=== PATIENT | male | born 1980 | race African-American/Black ===

== ENCOUNTER 2017-09-15 19:01 | Emergency (ER) | payer OTHER ==
[~2017-09-15] VITALS: Ht 172.7 cm; Wt 112.9 kg
--- NOTE | 2017-09-15 19:35 | ED Integumentary General ---
General Stated Complaint: R SIDE BOIL INNER THIGH Source: patient Exam Limitations: no limitations History of Present Illness Date Seen by Provider: Sep 15, 2017 Time Seen by Provider: 19:27 Initial Comments The patient presents to the ER by private conveyance with a chief complaint about 1-2 days now he's noticed a boil growing up in his right inner thigh. He says he's gotten them never this bad before. Usually he will apply some aloe vera and they go away but this one is not. It is painful draining a small amount of purulent drainage. He's had no fevers chills nausea vomiting or diarrhea. He has a history of asthma and uses Advair. Allergies and Home Medications Allergies Coded Allergies: No Known Drug Allergies (Unverified , 09/15/17) Patient Home Medication List Home Medication List Reviewed: Yes Constitutional: No chills, No diaphoresis EENTM: No ear discharge, No ear pain Respiratory: No cough, No short of breath Cardiovascular: No chest pain, No palpitations Gastrointestinal: No abdominal pain, No constipation, No diarrhea Genitourinary: No discharge, No dysuria Musculoskeletal: No back pain, No gout, No joint pain, No muscle stiffness, No muscle cramps Skin: see HPI; No pruritus, No rash Psychiatric/Neurological: Denies Headache, Denies Numbness Past Mpnrehk-Neewyk-Ouaxwz Hx Patient Social History Alcohol Use: Denies Use Recreational Drug Use: No Smoking Status: Never a Smoker Recent Foreign Travel: No Contact w/Someone Who Travel: No Physical Exam Vital Signs Vital Signs - First Documented 09/15/17 19:27 Temp 98.7 Pulse 82 Resp 16 B/P (MAP) 125/95 (105) Pulse Ox 99 Capillary Refill : General Appearance: WD/WN, no apparent distress Cardiovascular: normal peripheral pulses, regular rate, rhythm Respiratory: no respiratory distress, no accessory muscle use Neurologic/Psychiatric: alert, oriented x 3 Skin: other (3 cm diameter area of induration with some erythema and a central pore with some mild scant discharge around the wound. There is no tenderness around the perineum. The wound is medial thigh about 4 inches inferior to the perineum) Procedures/Interventions I&D : Blade Size: 11 I & D Procedure: betadine prep (chlorhexidine soap water) Progress Infiltrate in the wound with 9 cc of lidocaine. Patient was having a lot of trouble tolerating the injection so we used a total of 2 mg Ativan and 50 Carter grams of fentanyl and this helped. We then were able to mirian the wound using an 11 blade and a cross vera fashion and got out about 5-10 cc of red tinged purulence. Unfortunately while trying to break up loculations with the cotton tipped applicator the patient was not able to tolerate any more so we cover the wound with a dressing and will have him follow up outpatient as necessary on antibiotics. Progress/Results/Core Measures Results/Orders My Orders Orders - UDAY WELSH Lidocaine 1% Inj 20 Ml (Xylocaine 1% Inj (09/15/17 20:00) Lorazepam Injection (Ativan Injection) (09/15/17 20:00) Fentanyl Injection (Sublimaze Injection (09/15/17 20:00) Let Solution (Let Solution) (09/15/17 20:10) Let Solution (Let Solution) (09/15/17 20:15) Lorazepam Injection (Ativan Injection) (09/15/17 20:45) Sulfamethoxazole/Trimet Ds Tab (Bactrim (09/15/17 22:15) Medications Given in ED Current Medications Medications Dose Ordered Sig/Margie Route Start Time Stop Time Status Last Admin Dose Admin Fentanyl Citrate 50 mcg ONCE ONCE IM 09/15/17 20:00 09/15/17 20:01 DC 09/15/17 20:05 50 MCG Lorazepam 1 mg ONCE ONCE IM 09/15/17 20:00 09/15/17 20:01 DC 09/15/17 20:04 1 MG Lorazepam 1 mg ONCE ONCE IM 09/15/17 20:45 09/15/17 20:46 DC 09/15/17 20:49 1 MG Tetracaine/ Epinephrine/ Lidocaine 1 ea ONCE ONCE TOP 09/15/17 20:15 09/15/17 20:16 DC 09/15/17 20:10 1 EA Vital Signs/I&O 09/15/17 19:27 Temp 98.7 Pulse 82 Resp 16 B/P (MAP) 125/95 (105) Pulse Ox 99 Progress Progress Note : Time: 21:30 Progress Note The patient had a difficult time tolerating initial injection of lidocaine so we gave him a milligram of Ativan and 50 of fentanyl. After 2030 minutes we tried again and he still having quite a bit of anxiety and pain so we gave another milligram of Ativan. At that point he was able to allow us to do his procedure. Departure Impression Primary Impression: Abscess Disposition: 01 HOME, SELF-CARE Condition: Stable Departure-Patient Inst. Decision time for Depature: 22:18 Referrals: GERALD RIVERA DO NO,LOCAL PHYSICIAN (PCP) Primary Care Physician Patient Instructions: Abscess Incision and Drainage (DC) Add. Discharge Instructions: Keep the wound open and you can use a light gauze dressing just to catch the drainage. Changes often as necessary or at least daily. Keep the wound clean with regular soap and water and dry the skin around it. Take the antibiotics 2 tablets twice a day with food for 7 days. If by Sunday or Sunday, 2-3 days from now you're still having a lot of pain and swelling in that area or if it's gotten worse call Dr. Rivera's office and request an appointment in the next 1- 2 days. If you started experience fevers chills nausea vomiting or other worrisome symptoms return to the ER. Scripts Sulfamethoxazole/Trimethoprim (Bactrim Ds Tablet) 1 Each Tablet 2 EACH PO BID for 7 Days, #26 TAB 0 Refills Prov: UDAY WELSH 09/15/17 Work/School Note: Work Release Form Date Seen in the Emergency Department: Sep 15, 2017 Return to Work: Sep 18, 2017 Restrictions: No Restrictions Copy Copies To 1: GERALD RIVERA TITUS J Sep 15, 2017 19:35
[2017-09-15] MEDS ORDERED: LIDOCAINE 1% INJ 20 ML 20 ML VIAL INJ ONE (20:00)
[2017-09-15] MEDS ORDERED: fentaNYL INJECTION 100 MCG/2 ML AMP IM ONE (20:00)
[2017-09-15] MEDS ORDERED: LORazepam INJ 2 MG/ML (ATIVAN) VIAL IM ONE ×2 (20:00→20:45)
[2017-09-15] MEDS ORDERED: L.E.T. SYRINGE 5 ML ONE (20:10)
[2017-09-15] MEDS ORDERED: L.E.T. SYRINGE 5 ML TOP ONE (20:15)
[2017-09-15] MEDS ORDERED: TRIM/SULFAMETH 160/800 (SEPTRA DS) TAB PO ONE (22:15)
[2017-09-15] MEDS ORDERED: SULF1TAB35 PO (22:20)
[2017-09-15 22:26] VITALS: BP 145/74
[2017-09-16] MEDS ORDERED: TRAM50TA2 PO ×2 (15:33)
[2017-09-16] MEDS ORDERED: SULF1TAB35 PO ×2 (15:33)
== END 2017-09-15 22:24 | disposition home or self-care (01) ==
LOC: ER 19:05
DX: L02.415 Cutaneous abscess of right lower limb (principal); J45.909 Unspecified asthma, uncomplicated
CPT/HCPCS: 10061; 96372

== ENCOUNTER 2017-09-16 13:09 | Day surgery (SDC) | payer OTHER ==
[~2017-09-16] VITALS: Ht 172.7 cm; Wt 109.8 kg
[~2017-09-16 13:09] MED LIST: SULF1TAB35 PO
[2017-09-16] MEDS ORDERED: ceFAZolin 2 GM IV Premixed 50 ML IV ONE (13:30)
[2017-09-16] MEDS ORDERED: LACTATED RINGERS 1,000 ML IV SCH (13:30)
--- NOTE | 2017-09-16 13:40 | History & Physical-Surgical ---
History of Present Illness History of Present Illness Reason for visit/HPI HPI per ED: The patient presents to the ER by private conveyance with a chief complaint about 1-2 days now he's noticed a boil growing up in his right inner thigh. He says he's gotten them never this bad before. Usually he will apply some aloe vera and they go away but this one is not. It is painful draining a small amount of purulent drainage. He's had no fevers chills nausea vomiting or diarrhea. He has a history of asthma and uses Advair. When I spoke to pt he staes this all started last sunday, got a little better by sunday and then started getting worse this sunday. He went in to the ER and they tried to do I&D, but he could not stand the pain. He went home, but it has since gotten bigger and thinks it is worse. Pt thinks pain is about the same; 6 out of 10 on a 1-10 scale. Sharp, stabbing pain...not radiating anywhere. Date of Admission 09/16/17 Time Seen by Provider: 13:12 I consulted on this patient on 09/16/17 13:34 Attending Physician Javy Rivera DO Admitting Physician No,Local Physician Consult Allergies and Home Medications Allergies Coded Allergies: No Known Drug Allergies (Unverified , 09/15/17) Home Medications Sulfamethoxazole/Trimethoprim 1 Each Tablet, 2 EACH PO BID Prescribed by: UDAY WELSH on 09/15/17 2220 Patient Home Medication List Home Medication List Reviewed: Yes Past Zcmfzxx-Oovvmk-Vhcidc Hx Patient Social History Alcohol Use: Denies Use Recreational Drug Use: No Smoking Status: Never a Smoker 2nd Hand Smoke Exposure: No Recent Foreign Travel: No Contact w/Someone Who Travel: No Recent Hopitalizations: No Seasonal Allergies Seasonal Allergies: No Surgeries History of Surgeries: Yes Surgeries: Orthopedic (ruptured achilles tendon) Respiratory History of Respiratory Disorde: Yes Respiratory Disorders: Asthma Cardiovascular History of Cardiac Disorders: No Neurological History of Neurological Disord: No Genitourinary History of Genitourinary Disor: No Gastrointestinal History of Gastrointestinal Di: No Musculoskeletal History of Musculoskeletal Dis: No Endocrine History of Endocrine Disorders: Yes Endocrine Disorders: Diabetes, Non-Insulin dep HEENT History of HEENT Disorders: No Cancer History of Cancer: No Psychosocial History of Psychiatric Problem: No Integumentary History of Skin or Integumenta: No Blood Transfusions History of Blood Disorders: No Family Medical History Significant Family History: Diabetes (grandmother), Hypertension (father) Constitutional: No chills, No diaphoresis, No dizziness, No weakness EENTM: No blurred vision, No double vision, No mouth pain, No throat pain, No throat swelling Respiratory: No cough, No dyspnea on exertion Cardiovascular: No chest pain, No edema, No palpitations Gastrointestinal: No abdominal pain, No constipation, No nausea Genitourinary: No dysuria, No frequency, No hematuria Musculoskeletal: No joint pain, No joint swelling, No muscle stiffness, No muscle cramps Skin: see HPI; No change in color, No change in hair/nails Psychiatric/Neurological: Denies Anxiety, Denies Depressed, Denies Paresthesia , Denies Seizure, Denies Tremors pt denies any abnormal bruising or bleeding, no heat or cold intolerance Physical Exam Vital Signs Capillary Refill : General Appearance: WD/WN, Mild Distress Eyes: Bilateral Eye PERRL, Bilateral Eye EOMI HEENT: PERRL/EOMI, Pharynx Normal; No Pale Conjunctivae (L), No Pale Conjunctivae (R) Neck: Full Range of Motion, Normal Inspection, Non Tender, Supple Respiratory: Chest Non Tender, Lungs Clear, Normal Breath Sounds, No Accessory Muscle Use, No Respiratory Distress Cardiovascular: Regular Rate, Rhythm, No Edema, No Murmur, Normal Peripheral Pulses Gastrointestinal: Normal Bowel Sounds, No Organomegaly, No Pulsatile Mass, Non Tender, Soft Back: No CVA Tenderness, No Vertebral Tenderness Extremity: Normal Capillary Refill, Normal Inspection, Normal Range of Motion, Non Tender, No Calf Tenderness, No Pedal Edema Neurologic/Psychiatric: Alert, Oriented x3, No Motor/Sensory Deficits, Normal Mood/Affect, assistant produce manager II-XII Norm as Tested Skin: Other (right posterior aspect of leg, appx 6-7 inches below gluteal fold , somewhat medial is an area of fluctuance, tender, and warmth) Lymphatic: No Adenopathy (neck, axilla or groin) Assessment/Plan Assessment/Plan Admission Diagonsis Right Lower Extremity Abscess Admission Status: Other (Same Day Surgery) Assessment/Plan Right Lower Extremity Abscess Plan is to take pt to OR for I&D with possible debridement and possible packing. Risks and complications discussed with pt; not limited to pain, bleeding, infection and scar. He will be sent home with PO ABX and pain meds, will follow up in a week to recheck. All questions answered to his and his 's satisfaction. This H&P was necessary because I had never seen the pt and needed to assess the abscess, his fitness for surgery and be able to explain everything to him. JAVY RIVERA DO Sep 16, 2017 13:40
[2017-09-16 14:03] VITALS: BP 119/71
[2017-09-16] MEDS ORDERED: LIDOCAINE/EPI 1%-1:200,000 (XYLOCAINE) 10 ML VIAL ONE (14:22)
[2017-09-16] MEDS ORDERED: fentaNYL INJECTION 100 MCG/2 ML AMP ONE (14:44)
[2017-09-16] MEDS ORDERED: MIDAZOLAM 2 MG/2 ML (VERSED) VIAL ONE (14:45)
[2017-09-16] MEDS ORDERED: ONDANSETRON 4 MG/2 ML (SDV) Z0FRAN IVP PRN (15:00)
[2017-09-16] MEDS ORDERED: morphine INJ 10 MG/ML 1ML (SYR OR VIAL) IVP PRN (15:00)
[2017-09-16] MEDS ORDERED: SEVOFLURANE (ULTANE) 15 ML INHAL SOLN ONE (15:18)
[2017-09-16] MEDS ORDERED: proPOfol 200 MG/20 ML (DIPRIVAN) VIAL IV ONE (15:18)
[2017-09-16] MEDS ORDERED: LIDOCAINE PF 2% 5 ML (XYLOCAINE) VIAL ONE (15:18)
[2017-09-16] MEDS ORDERED: ONDANSETRON 4 MG/2 ML (SDV) Z0FRAN ONE (15:18)
[2017-09-16] MEDS: MEPERIDINE (DEMEROL) INJ 50 MG/ML IVP PRN ×2 (15:31→15:41)
--- NOTE | 2017-09-16 15:31 | Progress Note-Post Operative ---
Post-Operative Progess Note Surgeon (s)/Hand Tool Lapper (s) Surgeon GERALD EMERSON DO Hand Tool Lapper: none Pre-Operative Diagnosis abcess Post-Operative Diagnosis same Procedure & Operative Findings Date of Procedure 09/16/17 Procedure Performed/Findings I&D With packing Anesthesia Type GET Estimated Blood Loss Estimated blood loss (mL): scant Specimens/Packing Specimens Removed culture GERALD EMERSON DO Sep 16, 2017 15:31
[2017-09-16] MEDS ORDERED: SULF1TAB35 PO ×2 (15:33)
[2017-09-16] MEDS ORDERED: TRAM50TA2 PO ×2 (15:33)
--- NOTE | 2017-09-16 15:36 | Discharge Inst-Surgical ---
Discharge Inst-Surgical Depart Medication/Instructions New, Converted or Re-Newed RX: RX Given to Pt/Family Patient Instructions Follow up Appt: Make appointment for 1 week. [phone] Instructions: No strenuous activity. May shower in 24 hours, no tub bath or soaking. Use incentive spirometer at home as directed. No Smoking Skin/Wound Care: May remove bandages. You need to change the iodophor packing daily. Symptoms to Report: Appetite Changes, Extremity Discoloration, Numbness/Tingling, Swelling Increased , Bleeding Excessive, Eyesight Changes, Pain Increased, Urine Color Change, Constipation(Persistent), Fever over 101 degree F, Pain/Pressure in chest, Urinating Difficulty, Cough Up/Vomit Blood, Heart Beat Irreg/Pounding, Pain/ Pressure in jaw, Cramps in feet or legs, Lightheadedness, Pain/Pressure in shoulder, Diarrhea(Persistent), Memory Changes Suddenly, Questions/Concerns, Weight gain consecutive days, Dizziness/Fainting, Nausea/Vomiting, Shortness of Breath, Weight gain over 2 pounds If questions or concerns contact your physician Or seek help at emergency department. Activity Activity as Tolerated: Yes Driving Instructions: No Driving/Refer to (while on pain meds or if you can 't drive normally (perform all actions without stopping them because of pain)) Diet Discharge Diet: No Restrictions Diet After 24 Hours: Clear Liquid if Nauseous If Any Problems/Questions/Issu: Contact Your Physician, Go to Emergency Room Skin/Wound Care Infection Signs and Symptoms: Increased Redness, Foul Odor of Wound, Increased Drainage, Skin Itchy or Has a Rash, Increased Swelling, Temperature Above 101 F Bathing Instructions: Shower Ice Pack: Ice On and Off Site (as needed for pain) GERALD EMERSON DO Sep 16, 2017 15:35
[2017-09-16 16:18] VITALS: BP 132/80
[2017-09-16 17:01] VITALS: BP 132/80
[2017-09-16] MEDS ORDERED: morphine INJ 10 MG/ML 1ML (SYR OR VIAL) ONE (17:12)
[2017-09-16] MEDS ORDERED: MEPERIDINE (DEMEROL) INJ 50 MG/ML ONE (17:12)
--- NOTE | 2017-09-16 22:39 | OPERATIVE REPORT ---
DATE OF SERVICE: 09/16/2017 PREOPERATIVE DIAGNOSIS: Right leg abscess. POSTOPERATIVE DIAGNOSIS: Right leg abscess. PROCEDURE: Incision and drainage of right leg abscess with packing. SURGEON: Javy Rivera DO. MOLDED GOODS SPOT PICKER: None. ANESTHESIA: General endotracheal tube. BLOOD LOSS: Scant. FLUIDS: Per anesthesia. SPECIMEN: Wound culture. INDICATION FOR PROCEDURE: The patient is a 37-year-old male who has been having abscess and right leg pain about the same, possibly worse, but looked like it was getting bigger and needed this drained. FINDINGS: The patient had an abscess, minimal purulence on the right thigh, it was a firm area and then needed this to be I and D'd. PROCEDURE NOTE: After informed consent was obtained, the patient was brought to the operating room, placed on the table in the supine position with his legs frog legged. He was then sterilely prepped and draped in normal fashion. Local lidocaine was used to infiltrate the skin around this area and I then made an incision with #15-blade, carried down through the skin into the subcutaneous tissue, then deepened down to subcutaneous tissue with Bovie electrocautery, down, got a little bit of purulence out very minimal. There was a pocket, cultured this area and then debrided roughly with a sponge. Hemostasis was obtained using Bovie electrocautery. Copiously irrigated with normal saline. I did not see any necrotic tissue, did not see any more purulence and at this point I then elected to pack this area with quarter inch iodoform packing packed this area. The leg was cleaned, dried and pressure dressing placed. The patient then transferred to recovery room in stable condition. Sponge, instrument and needle count correct at the end of the case. Job ID: [id number] DocumentID: [id number] Dictated Date: 09/16/2017 15:39:21 Travel Guide Date: 09/16/2017 22:38:25 Dictated By: JAVY RIVERA DO
--- NOTE | 2017-09-17 13:30 | Anesthesia-General Post-Op ---
General Patient Condition Mental Status/LOC: Same as Preop Cardiovascular: Satisfactory Nausea/Vomiting: Absent Respiratory: Satisfactory Pain: Controlled Complications: Absent Post Op Complications Complications None Follow Up Care/Instructions Patient Instructions None needed. Anesthesia/Patient Condition Patient Condition Patient was already discharged to home. No anesthetic complications noted per RN. JAKOB MAYNARD DO Sep 17, 2017 13:30
== END 2017-09-16 17:03 | disposition home or self-care (01) ==
LOC: SDC 13:09
PROVIDERS: ATTEND Surgery
DX: L02.415 Cutaneous abscess of right lower limb (principal); E11.9 Type 2 diabetes mellitus without complications; J45.909 Unspecified asthma, uncomplicated
CPT/HCPCS: 87070; 87075; 87077; 87081; 87205